=== PATIENT | male | born 1965 | race Caucasian/White ===

== ENCOUNTER 2019-02-01 07:59 | Emergency (ER) | payer BC, OTHER ==
[~2019-02-01] VITALS: Ht 175.3 cm; Wt 93.0 kg
[2019-02-01 08:15] VITALS: BP 133/82
== END 2019-02-01 09:41 | disposition home or self-care (01) ==
LOC: ER 08:03
DX: G89.29 Other chronic pain (principal); M25.551 Pain in right hip; R21 Rash and other nonspecific skin eruption; I10 Essential (primary) hypertension; M19.90 Unspecified osteoarthritis, unspecified site; F12.10 Cannabis abuse, uncomplicated; Z88.8 Allergy status to other drugs, medicaments and biological substances
CPT/HCPCS: 73502